=== PATIENT | female | born 1955 | race African-American/Black ===

== ENCOUNTER 2020-05-12 15:58 | Emergency (ER) | payer MEDICAID ==
[~2020-05-12] VITALS: Ht 152.4 cm; Wt 58.9 kg
[2020-05-12 18:38] VITALS: BP 122/88
== END 2020-05-12 18:38 | disposition home or self-care (01) ==
LOC: ER 15:58
DX: Z20.828 Contact with and (suspected) exposure to other viral communicable diseases (principal)
CPT/HCPCS: 93005; 99283

== ENCOUNTER 2020-05-23 10:28 | Emergency (ER) | payer MEDICAID ==
[~2020-05-23] VITALS: Ht 167.6 cm; Wt 73.0 kg
[2020-05-23] MEDS ORDERED: ACETAMINOPHEN 325MG TABLET PO ONE (11:00)
[2020-05-23] MEDS ORDERED: LIDOCAINE HCL 1% 20ML VIAL (Pyxis) INJ INFIL NR (12:00)
[2020-05-23] MEDS ORDERED: MORPHINE SULFATE 4 MG/ML CPJ (NOT FOR IM USE) IV ONE (12:30)
[2020-05-23] MEDS ORDERED: MORPHINE SULFATE 2 MG/ML CPJ (NOT FOR IM USE) IV NR (12:45)
[2020-05-23 17:14] VITALS: BP 129/76
== END 2020-05-23 17:15 | disposition home or self-care (01) ==
LOC: ER 10:44
DX: S52.592A Other fractures of lower end of left radius, initial encounter for closed fracture (principal); W01.198A Fall on same level from slipping, tripping and stumbling with subsequent striking against other object, initial encounter; Y93.89 Activity, other specified; Y92.89 Other specified places as the place of occurrence of the external cause; I69.351 Hemiplegia and hemiparesis following cerebral infarction affecting right dominant side; F17.210 Nicotine dependence, cigarettes, uncomplicated; Z71.6 Tobacco abuse counseling
CPT/HCPCS: 25605; 73100; 73110; 99284; 99406; J3490; J2270